=== PATIENT | female | born 1990 | race Caucasian/White ===

== ENCOUNTER → 2017-07-18 | Outpatient (CLI) | payer OTHER ==
[2017-07-18 16:00] LABS: HEMATOCRIT 42.1 % (37.0-47.0); HEMOGLOBIN 13.3 g/dL (12.5-16.0); RED BLOOD COUNT 4.46 M/mm3 (4.10-5.30); RED CELL DISTRIBUTION WIDTH 12.9 % (11.5-14.5)
[2017-07-18 16:40] LABS: ALBUMIN 4.2 g/dL (3.5-5.0); BUN/CREATININE RATIO 8.7 (6.0-26.0); CALCIUM 9.3 mg/dL (8.4-10.2); TOTAL BILIRUBIN 0.5 mg/dL (0.2-1.3)
== END ==
LOC: LAB 15:03
PROVIDERS: Nurse Practitioner Family
DX: R19.7 Diarrhea, unspecified (principal); R11.0 Nausea